=== PATIENT | male | born 1995 | race African-American/Black ===

== ENCOUNTER 2016-08-23 09:36 | Emergency (ER) | payer MEDICAID, OTHER ==
[~2016-08-23] VITALS: Ht 180.3 cm; Wt 78.9 kg
[2016-08-23 12:30] VITALS: BP 118/75
== END 2016-08-23 13:01 | disposition home or self-care (01) ==
LOC: ER 09:36
DX: J40 Bronchitis, not specified as acute or chronic (principal)
CPT/HCPCS: 71020